=== PATIENT | female | born 1970 | race African-American/Black ===

== ENCOUNTER 2020-08-30 22:12 | Emergency (ER) | payer MEDICAID, OTHER ==
[~2020-08-30] VITALS: Ht 177.8 cm; Wt 55.0 kg
[2020-08-30] MEDS ORDERED: SODIUM CHLORIDE 0.9% 1,000 ML IV ONE (22:30)
[2020-08-30 23:23] LABS: BASOPHILS % 1.8 % (0.0-2.0); HEMATOCRIT. 38.5 % (36.0-48.0); HEMOGLOBIN. 12.8 g/dL (12.0-16.0); LYMPHOCYTES % 52.8 % (20.0-50.0); MEAN CORPUSCULAR HEMOGLOBIN 37.4 pg (28.0-32.0); MEAN CORPUSCULAR VOLUME 112.8 fL (81.0-99.0); MEAN PLATELET VOLUME 8.7 fl (7.4-10.4); MONOCYTES % 7.6 % (2.0-8.0); NEUTROPHILS % 35.8 % (40.0-76.0); PLATELET 279 x1000/uL (130-400); RED BLOOD CELL COUNT 3.41 mill/uL (4.2-5.4); RED CELL DISTRIBUTION WIDTH 15.7 % (11.6-14.6)
[2020-08-30 23:34] LABS: CHLORIDE 114 mEq/L (98-107)
[2020-08-30 23:38] LABS: ETHANOL BLOOD 262 mg/dL
[2020-08-30 23:44] LABS: CLARITY URINE CLEAR (CLEAR); COLOR URINE YELLOW (YELLOW); KETONES URINE NEGATIVE (NEGATIVE); LEUKOCYTE ESTERASE URINE NEGATIVE (NEGATIVE); NITRITE URINE NEGATIVE (NEGATIVE); OCCULT BLOOD URINE NEGATIVE (NEGATIVE); PH URINE 5.5 (4.5-8.0); PROTEIN URINE NEGATIVE (NEGATIVE); SPECIFIC GRAVITY URINE 1.007 (1.005-1.030); UROBILINOGEN URINE 0.2 E.U./dL (0.2-1.0)
[2020-08-30 23:50] LABS: HCG SCREEN NEGATIVE
[2020-08-30 23:55] LABS: *AMPHETAMINES SCREEN URINE NEGATIVE (NEGATIVE); *BARBITURATES SCREEN URINE NEGATIVE (NEGATIVE); *BENZODIAZEPINES SCREEN URINE NEGATIVE (NEGATIVE); *COCAINE SCREEN URINE PRESUMTIVE POSITIVE (NEGATIVE)
[2020-08-30 23:57] LABS: CANNABINOID URINE SCREEN NEGATIVE (NEGATIVE); METHADONE URINE SCREEN NEGATIVE (NEGATIVE); OPIATES URINE SCREEN NEGATIVE (NEGATIVE); PHENCYCLIDINE URINE SCREEN NEGATIVE (NEGATIVE)
[2020-08-31 00:34] LABS: PLATELET ESTIMATE NORMAL
[2020-08-31] MEDS ORDERED: ONDANSETRON 4MG ODT PO ONE (03:15)
[2020-08-31 03:51] VITALS: BP 99/53
== END 2020-08-31 04:26 | disposition home or self-care (01) ==
LOC: ER 22:12
DX: G40.909 Epilepsy, unspecified, not intractable, without status epilepticus (principal); F14.10 Cocaine abuse, uncomplicated; I10 Essential (primary) hypertension; J45.909 Unspecified asthma, uncomplicated; J44.9 Chronic obstructive pulmonary disease, unspecified
CPT/HCPCS: 36415; 70450; 71045; 80053; 80305; 80307; 80320; 80329; 81003; 81025; 82140; 82962; 84703; 85025; 93005; 96360; 96361; 99285; J7030; Q0162; G0480

== ENCOUNTER 2021-03-31 02:58 | Emergency (ER) | payer MEDICAID ==
[~2021-03-31] VITALS: Ht 160 cm; Wt 55.0 kg
[2021-03-31 05:00] VITALS: BP 118/72
== END 2021-03-31 05:30 | disposition home or self-care (01) ==
LOC: ER 02:58
DX: R07.89 Other chest pain (principal); R43.8 Other disturbances of smell and taste; Z20.822 Contact with and (suspected) exposure to COVID-19; I10 Essential (primary) hypertension; G40.909 Epilepsy, unspecified, not intractable, without status epilepticus; J45.909 Unspecified asthma, uncomplicated; J44.9 Chronic obstructive pulmonary disease, unspecified
CPT/HCPCS: 71045; 87426; 93005; 99285; C9803; U0003; U0005

== ENCOUNTER 2022-12-03 19:48 | Emergency (ER) | payer MEDICAID ==
[~2022-12-03] VITALS: Ht 157.5 cm; Wt 61.0 kg
[2022-12-03 19:55] VITALS: BP 116/71
[2022-12-03] MEDS ORDERED: LEVETIRACETAM 500MG TABLET PO ONE (21:45)
== END 2022-12-03 22:11 | disposition home or self-care (01) ==
LOC: ER 19:48
DX: G40.909 Epilepsy, unspecified, not intractable, without status epilepticus (principal); J45.909 Unspecified asthma, uncomplicated
CPT/HCPCS: 99283